=== PATIENT | male | born 1985 | race Two or more races ===

== ENCOUNTER 2017-07-21 19:42 | Inpatient (IN) | payer BC ==
[~2017-07-21] VITALS: Ht 165.1 cm; Wt 82.6 kg
[2017-07-21] MEDS ORDERED: ZANTAC150 MG ORAL (19:53)
[2017-07-21] MEDS ORDERED: Pantoprazole Inj IV ONE (20:30)
[2017-07-21 20:50] LABS: APPEARANCE,URINE SLIGHTLY CLOUDY; BILIRUBIN, URINE NEGATIVE (NEGATIVE); COLOR,URINE BROWN; GLUCOSE, URINE (UA) NEGATIVE (NEGATIVE); KETONES,URINE 1+ (NEGATIVE); LEUKOCYTE ESTERASE ,URINE 1+ (NEGATIVE); NITRITE,URINE NEGATIVE (NEGATIVE); PH,URINE 6 (4.5-8.0); PROTEIN,URINE 3+ (NEGATIVE); UROBILINOGEN,URINE 12 MG/DL (0.0-1.0)
[2017-07-21 21:06] LABS: BASOPHILS % (AUTO) 1.8 % (0.0-2.0); EOSINOPHILS % (AUTO) 0.8 % (0.0-3.0); HEMATOCRIT 46.2 % (42.0-52.0); LYMPHOCYTES % (AUTO) 16.8 % (20.0-45.0); MEAN CORPUSCULAR VOLUME 89 FL (80-99); MONOCYTES % (AUTO) 7.9 % (1.0-10.0); NEUTROPHILS % (AUTO) 72.8 % (45.0-75.0); PLATELET COUNT 180 K/UL (150-450); RED BLOOD COUNT 5.17 M/UL (4.70-6.10); RED CELL DISTRIBUTION WIDTH 11.5 % (11.6-14.8)
[2017-07-21 21:11] LABS: ANION GAP 13 mmol/L (5-15); BLOOD UREA NITROGEN 5 mg/dL (7-18); CALCIUM 9.5 MG/DL (8.5-10.1); CARBON DIOXIDE 25 MMOL/L (21-32); CHLORIDE 101 MMOL/L (98-107); CREATININE 0.9 MG/DL (0.55-1.30); POTASSIUM 2.9 MMOL/L (3.5-5.1); SODIUM 138 MMOL/L (136-145)
--- NOTE | 2017-07-21 21:16 | Emergency Room Report ---
History of Present Illness General Chief Complaint: Vomiting Source: Patient Present Illness HPI 32-year-old male presents to the emergency department complaining of nausea vomiting 2 weeks he reports that typically he has dark red blood in his vomit however today he started having bright red blood. Patient reports frequent alcohol consumption and states that in the past he had abnormal results with his liver enzymes. Patient states that he has not had blood work done for approximately 6 years. He reports 6 out of 10 in severity epigastric pain that is localized. He also reports diarrhea. Denies CP, Palpitations, LOC, AMS, dizziness, Changes in Vision, Sensation, paresthesias, or a sudden severe headache. Allergies: Coded Allergies: No Known Allergies (Unverified , 07/21/17) Patient History Past Medical History: see triage record Past Surgical History: none Pertinent Family History: none Social History: Reports: alcohol use - moderate-heavy, regularly Reviewed Nursing Documentation: PMH: Agreed; PSxH: Agreed Nursing Documentation-PMH Hx Gastrointestinal Problems: Yes Review of Systems All Other Systems: negative except mentioned in HPI Physical Exam Vital Signs Date Time Temp Pulse Resp B/P (MAP) Pulse Ox O2 Delivery O2 Flow Rate FiO2 07/21/17 19:48 98.5 106 16 142/78 95 Room Air 98.4 Sp02 EP Interpretation: reviewed, normal General Appearance: no apparent distress, alert, GCS 15 Head: normocephalic, atraumatic Eyes: bilateral eye normal inspection, bilateral eye PERRL ENT: hearing grossly normal, normal voice Neck: full range of motion Respiratory: chest non-tender, lungs clear, normal breath sounds, no wheezing, speaking full sentences Cardiovascular #1: regular rate, rhythm, tachycardia Gastrointestinal: normal bowel sounds - hyperactive BS in all 4 quadrants, non tender, soft Rectal: deferred Genitourinary: normal inspection Musculoskeletal: back normal, gait/station normal, normal range of motion, non- tender Neurologic: alert, oriented x3, responsive, motor strength/tone normal, sensory intact, speech normal, grossly normal Psychiatric: judgement/insight normal Skin: normal color, no rash, warm/dry, well hydrated Medical Decision Making PA Attestation Dr. Yap is my supervising Physician whom patient management has been discussed with. Diagnostic Impression: Primary Impression: Vomiting Qualified Codes: R11.2 - Nausea with vomiting, unspecified Additional Impressions: Upper GI bleeding H/O: upper GI bleed Hypokalemia, gastrointestinal losses Elevated liver enzymes ER Course 32-year-old male presents to the emergency department complaining of nausea vomiting 2 weeks he reports that typically he has dark red blood in his vomit however today he started having bright red blood. Patient reports frequent alcohol consumption and states that in the past he had abnormal results with his liver enzymes. Patient states that he has not had blood work done for approximately 6 years. He reports 6 out of 10 in severity epigastric pain that is localized. He also reports diarrhea. Denies CP, Palpitations, LOC, AMS, dizziness, Changes in Vision, Sensation, paresthesias, or a sudden severe headache. Ddx considered but are not limited to GE, colitis, acute appy, SBO, Cyclical Vomiting secondary to THC, * Vital signs: pt. is afebrile, H&PE are most consistent with GE most likely viral in etiology, no evidence to suggest acute abdomen on physical exam. ORDERS: -None required at this time, the dx is clinical. ED INTERVENTIONS: -1000 NS iv hydration, -Zofran 4mg DISPOSITION: at this time pt. will be admitted to Dr. Beckman for : Decreased liver function, upper GI bleed, and Hypokalemia. Dr. Beckman agreed to admit the pt. and to continue pt. care management. Labs Test 07/21/17 19:50 07/21/17 20:45 Urine Color Brown Urine Appearance Slightly cloudy Urine pH 6 (4.5-8.0) Urine Specific Hamill 1.020 (1.005-1.035) Urine Protein 3+ (NEGATIVE) Urine Glucose (UA) Negative (NEGATIVE) Urine Ketones 1+ (NEGATIVE) Urine Occult Blood Negative (NEGATIVE) Urine Nitrite Negative (NEGATIVE) Urine Bilirubin Negative (NEGATIVE) Urine Urobilinogen 12 MG/DL (0.0-1.0) Urine Leukocyte Esterase 1+ (NEGATIVE) Urine RBC 0-2 /HPF (0 - 0) Urine WBC 2-4 /HPF (0 - 0) Urine Squamous Epithelial Cells None /LPF (NONE/OCC) Urine Amorphous Sediment Moderate /LPF (NONE) Urine Bacteria Few /HPF (NONE) White Blood Count 9.0 K/UL (4.8-10.8) Red Blood Count 5.17 M/UL (4.70-6.10) Hemoglobin 17.0 G/DL (14.2-18.0) Hematocrit 46.2 % (42.0-52.0) Mean Corpuscular Volume 89 FL (80-99) Mean Corpuscular Hemoglobin 32.9 PG (27.0-31.0) Mean Corpuscular Hemoglobin Concent 36.9 G/DL (32.0-36.0) Red Cell Distribution Width 11.5 % (11.6-14.8) Platelet Count 180 K/UL (150-450) Mean Platelet Volume 7.7 FL (6.5-10.1) Neutrophils (%) (Auto) 72.8 % (45.0-75.0) Lymphocytes (%) (Auto) 16.8 % (20.0-45.0) Monocytes (%) (Auto) 7.9 % (1.0-10.0) Eosinophils (%) (Auto) 0.8 % (0.0-3.0) Basophils (%) (Auto) 1.8 % (0.0-2.0) Prothrombin Time 11.6 SEC (9.30-11.50) Prothromb Time International Ratio 1.1 (0.9-1.1) Activated Partial Thromboplast Time 26 SEC (23-33) Sodium Level 138 MMOL/L (136-145) Potassium Level 2.9 MMOL/L (3.5-5.1) Chloride Level 101 MMOL/L (98-107) Carbon Dioxide Level 25 MMOL/L (21-32) Anion Gap 13 mmol/L (5-15) Blood Urea Nitrogen 5 mg/dL (7-18) Creatinine 0.9 MG/DL (0.55-1.30) Estimat Glomerular Filtration Rate > 60 mL/min (>60) Glucose Level 118 MG/DL (74-106) Calcium Level 9.5 MG/DL (8.5-10.1) Total Bilirubin 1.9 MG/DL (0.2-1.0) Direct Bilirubin 0.8 MG/DL (0.0-0.3) Aspartate Amino Transf (AST/SGOT) 249 U/L (15-37) Alanine Aminotransferase (ALT/SGPT) 286 U/L (12-78) Alkaline Phosphatase 139 U/L (46-116) Total Protein 8.3 G/DL (6.4-8.2) Albumin 4.2 G/DL (3.4-5.0) Globulin 4.1 g/dL Albumin/Globulin Ratio 1.0 (1.0-2.7) Lipase 170 U/L (73-393) Chest X-Ray Diagnostic Results Chest X-Ray Diagnostic Results : Chest X-Ray Ordered: Yes # of Views/Limited/Complete: 1 View Indication: Chest Pain EP Interpretation: Yes PA Xray: Interpretation reviewed, by supervising MD, and agrees with findings. Interpretation: no consolidation, no effusion, no pneumothorax, no acute cardiopulmonary disease Impression: No acute disease Electronically Signed by: Leana De Guzman PA-C Last Vital Signs Date Time Temp Pulse Resp B/P (MAP) Pulse Ox O2 Delivery O2 Flow Rate FiO2 07/21/17 19:48 98.5 106 16 142/78 95 Room Air 98.4 Disposition: ADMITTED INPATIENT Condition: Serious Referrals: NOT CHOSEN IPA/,REFERRING (PCP) Leana De Guzman July 21, 2017 21:16
[2017-07-21 21:21] LABS: ALANINE AMINOTRANSFERASE 286 U/L (12-78); ALBUMIN 4.2 G/DL (3.4-5.0); ALKALINE PHOSPHATASE 139 U/L (46-116); ASPARTATE AMINO TRANSFERASE 249 U/L (15-37); BILIRUBIN,TOTAL 1.9 MG/DL (0.2-1.0)
[2017-07-21 21:22] LABS: BILIRUBIN,DIRECT 0.8 MG/DL (0.0-0.3)
[2017-07-21 22:13] VITALS: BP_SYST 118; BP_SYST 122; BP_DIAS 78; BP_DIAS 81
[2017-07-21 22:25] LABS: INR 1.1 (0.9-1.1)
[2017-07-21 23:09] VITALS: BP 137/90
[2017-07-22] VITALS (9 sets, daily range): BP systolic 120–156; BP diastolic 71–100
[2017-07-22] MEDS ORDERED: Potassium Chloride 40 MEQ in 1/2 NS 1000ml 1,000 ML IV SCH (00:18)
[2017-07-22] MEDS: NS w/KCl 20mEq 1,000 ML IV SCH ×3 (01:00→20:22)
--- NOTE | 2017-07-22 04:30 | History and Physical Report ---
DATE OF ADMISSION: 07/21/2017 HISTORY OF PRESENT ILLNESS: This is a 32-year-old male, who came in to the hospital with nausea and vomiting. He states he has been having off and on abdominal pain and emesis for approximately six months to a year. He has not lost any weight. Typically, he states he has emesis with dark red blood, however, today he started having bright red blood. The patient reports frequent and significant alcohol consumption over the weekends. He also takes ibuprofen on a regular basis. He states he has been told in the past that he has abnormal liver enzymes. The patient was seen and worked up in the emergency room and admitted to the hospital for emergent care. PAST MEDICAL HISTORY: Discussed above, unremarkable except for history of abnormal liver enzymes. Also history of heavy alcohol use and Motrin usage. PAST SURGICAL HISTORY: None. MEDICATIONS: Home medications, Motrin only. ALLERGIES: None reported. REVIEW OF SYSTEMS: The patient denies any headaches. He admits to hematemesis, but no melena. No GI bleeding. Abdomen, discussed above. No genitourinary problems. No chest pain or shortness of breath. PHYSICAL EXAMINATION: GENERAL: Reveals a young male. VITAL SIGNS: Blood pressure 130/70, heart rate 84, respirations 18, he is afebrile. HEENT: Unremarkable. LUNGS: Clear breath sounds bilaterally. ABDOMEN: Soft. EXTREMITIES: There is no edema. NEUROLOGIC: Nonfocal. LABORATORY DATA: Lab testing shows hemoglobin of 17, remaining laboratories are unremarkable. Bilirubin 1.9, AST 249, ALT 286, and alkaline phosphatase 139. Protein 8.3. Glucose 118. Potassium 2.9. IMPRESSION: 1. Hypokalemia. 2. Transaminitis. 3. Hyperglycemia. 4. Upper GI bleed. 5. Alcohol use. 6. Motrin use. DISCUSSION: Admitted to the hospital. We will check hepatitis serologies. We will consult GI balloon endoscopy. We will replace potassium. Start SCDs, Protonix. We will follow carefully. Malik Beckman M.D. DR: IGNACIO JOB#: [id number] CC:
[2017-07-22 06:10] LABS: BASOPHILS % (AUTO) 1.5 % (0.0-2.0); EOSINOPHILS % (AUTO) 1.4 % (0.0-3.0); HEMATOCRIT 41.6 % (42.0-52.0); HEMOGLOBIN 14.6 G/DL (14.2-18.0); LYMPHOCYTES % (AUTO) 29.3 % (20.0-45.0); MEAN CORPUSCULAR VOLUME 90 FL (80-99); MONOCYTES % (AUTO) 7.8 % (1.0-10.0); PLATELET COUNT 135 K/UL (150-450); RED BLOOD COUNT 4.61 M/UL (4.70-6.10); RED CELL DISTRIBUTION WIDTH 11.2 % (11.6-14.8); WHITE BLOOD COUNT 5.8 K/UL (4.8-10.8)
[2017-07-22 06:23] LABS: ANION GAP 11 mmol/L (5-15); BLOOD UREA NITROGEN 5 mg/dL (7-18); CALCIUM 8.5 MG/DL (8.5-10.1); CARBON DIOXIDE 24 MMOL/L (21-32); CHLORIDE 106 MMOL/L (98-107); CREATININE 0.9 MG/DL (0.55-1.30); POTASSIUM 3.3 MMOL/L (3.5-5.1); SODIUM 141 MMOL/L (136-145)
[2017-07-22 06:37] LABS: INR 1.1 (0.9-1.1)
--- NOTE | 2017-07-22 07:38 | Pre-Procedure Note/Attestation ---
Pre-Procedure Note/Attestation Complete Prior to Procedure Planned Procedure: not applicable Procedure Narrative: egd Indications for Procedure Pre-Operative Diagnosis: GIB Attestation I attest that I discussed the nature of the procedure; its benefits; risks and complications; and alternatives (and the risks and benefits of such alternatives ), prior to the procedure, with the patient (or the patient's legal veterans contact representative). I attest that, if there was a reasonable possibility of needing a blood transfusion, the patient (or the patient's legal veterans contact representative) was given the [facility] standardized written summary, pursuant to the Fabio Griselda Blood Safety Act ([place] Health and Safety Code # 1645, as amended). I attest that I re-evaluated the patient just prior to the surgery and that there has been no change in the patient's H&P, except as documented below: Neptali Navas MD July 22, 2017 07:38
[2017-07-22] MEDS ORDERED: NS 500ML IVPB ONE (08:30)
[2017-07-22] MEDS ORDERED: Lidocaine 1% MPF 10mg/ml 5ml ONE (08:30)
[2017-07-22] MEDS ORDERED: Propofol 200mg/20ml IV ONE (08:30)
--- NOTE | 2017-07-22 08:43 | Endoscopy Procedure Note ---
Endoscopy Procedure Note General Indication for Procedure: gib Procedures Performed: EGD Operative Findings/Diagnosis: esophagitis Specimen: yes Pt Tolerated Procedure Well: Yes Estimated Blood Loss: none Anesthesia Anesthesiologist: carlos Anesthesia: MAC Inserted Devices Implant(s) used?: No GI Core Measures 50 yrs or older w/o bx or poly: Not Applicable 10yrs. F/U not recommended: Not Applicable Neptali Navas MD July 22, 2017 08:43
[2017-07-22] MEDS ORDERED: fentaNYL 100 mcg/2 mL IV PRN (09:00)
[2017-07-22] MEDS ORDERED: Pantoprazole Inj IV SCH (09:00)
[2017-07-22] MEDS ORDERED: Sucralfate 1gm tab ORAL SCH (09:00)
[2017-07-22] MEDS ORDERED: Atropine Inj 1mg/10ml Syr IV PRN (09:00)
[2017-07-22] MEDS ORDERED: Midazolam 2mg/2ml Inj IVP PRN (09:00)
[2017-07-22] MEDS ORDERED: DiphenhydrAMINE 50mg/ml Inj IVP PRN (09:00)
[2017-07-22] MEDS: Pantoprazole Inj IV SCH ×2 (09:00→19:01)
--- NOTE | 2017-07-22 09:00 | Anethesia Preoperative Eval ---
Anesthesia Pre-op PMH/ROS General Date of Evaluation: July 22, 2017 Time of Evaluation: 08:24 Anesthesiologist: carlos ASA Score: ASA 2 Mallampati Score Class I : Soft palate, uvula, fauces, pillars visible Class II: Soft palate, uvula, fauces visible Class III: Soft palate, base of uvula visible Class IV: Only hard plate visible Mallampati Classification: Class II Surgeon: tonny Diagnosis: upper gi bleed Surgical Procedure: egd Anesthesia History: none Social History: smoking - nonsmoker, alcohol use Family History: no anesthesia problems Allergies: Coded Allergies: No Known Allergies (Unverified , 07/21/17) Medications: see eMAR Anesthesia Pre-op Phys. Exam Physician Exam Last Vital Signs Date Time Temp Pulse Resp B/P (MAP) Pulse Ox O2 Delivery O2 Flow Rate FiO2 07/22/17 04:23 97.7 76 16 125/75 100 97.7 07/21/17 23:10 Room Air Constitutional: NAD Neurologic: CN 2-12 intact Cardiovascular: RRR Respiratory: CTA Gastrointestinal: S/NT/ND Airway Exam Mallampati Score: Class II MO: full Neck: supple TMD: 2fb ROM: full Teeth: intact Anesthesia Pre-op A/P Labs Hematology Test 07/21/17 20:45 07/22/17 05:40 White Blood Count 9.0 K/UL (4.8-10.8) 5.8 K/UL (4.8-10.8) Red Blood Count 5.17 M/UL (4.70-6.10) 4.61 M/UL (4.70-6.10) L Hemoglobin 17.0 G/DL (14.2-18.0) 14.6 G/DL (14.2-18.0) Hematocrit 46.2 % (42.0-52.0) 41.6 % (42.0-52.0) L Mean Corpuscular Volume 89 FL (80-99) 90 FL (80-99) Mean Corpuscular Hemoglobin 32.9 PG (27.0-31.0) H 31.7 PG (27.0-31.0) H Mean Corpuscular Hemoglobin Concent 36.9 G/DL (32.0-36.0) H 35.1 G/DL (32.0-36.0) Red Cell Distribution Width 11.5 % (11.6-14.8) L 11.2 % (11.6-14.8) L Platelet Count 180 K/UL (150-450) 135 K/UL (150-450) L Mean Platelet Volume 7.7 FL (6.5-10.1) 8.5 FL (6.5-10.1) Neutrophils (%) (Auto) 72.8 % (45.0-75.0) 60.0 % (45.0-75.0) Lymphocytes (%) (Auto) 16.8 % (20.0-45.0) L 29.3 % (20.0-45.0) Monocytes (%) (Auto) 7.9 % (1.0-10.0) 7.8 % (1.0-10.0) Eosinophils (%) (Auto) 0.8 % (0.0-3.0) 1.4 % (0.0-3.0) Basophils (%) (Auto) 1.8 % (0.0-2.0) 1.5 % (0.0-2.0) Coagulation Test 07/21/17 20:45 07/22/17 05:40 Prothrombin Time 11.6 SEC (9.30-11.50) H 11.5 SEC (9.30-11.50) Prothromb Time International Ratio 1.1 (0.9-1.1) 1.1 (0.9-1.1) Activated Partial Thromboplast Time 26 SEC (23-33) 25 SEC (23-33) Chemistry Test 07/21/17 20:45 07/22/17 05:40 Sodium Level 138 MMOL/L (136-145) 141 MMOL/L (136-145) Potassium Level 2.9 MMOL/L (3.5-5.1) L 3.3 MMOL/L (3.5-5.1) L Chloride Level 101 MMOL/L (98-107) 106 MMOL/L (98-107) Carbon Dioxide Level 25 MMOL/L (21-32) 24 MMOL/L (21-32) Anion Gap 13 mmol/L (5-15) 11 mmol/L (5-15) Blood Urea Nitrogen 5 mg/dL (7-18) L 5 mg/dL (7-18) L Creatinine 0.9 MG/DL (0.55-1.30) 0.9 MG/DL (0.55-1.30) Estimat Glomerular Filtration Rate > 60 mL/min (>60) > 60 mL/min (>60) Glucose Level 118 MG/DL (74-106) H 100 MG/DL (74-106) Calcium Level 9.5 MG/DL (8.5-10.1) 8.5 MG/DL (8.5-10.1) Total Bilirubin 1.9 MG/DL (0.2-1.0) H Direct Bilirubin 0.8 MG/DL (0.0-0.3) H Aspartate Amino Transf (AST/SGOT) 249 U/L (15-37) H Alanine Aminotransferase (ALT/SGPT) 286 U/L (12-78) H Alkaline Phosphatase 139 U/L (46-116) H Total Protein 8.3 G/DL (6.4-8.2) H Albumin 4.2 G/DL (3.4-5.0) Globulin 4.1 g/dL Albumin/Globulin Ratio 1.0 (1.0-2.7) Lipase 170 U/L (73-393) Risk Assessment & Plan Assessment: asa2 Plan: mac Status Change Before Surgery: No Pre-Antibiotics Drug: Myriam Pedro MD July 22, 2017 09:00
--- NOTE | 2017-07-22 09:23 | Immediate Post-Op Evaluation ---
Immediate Post-Op Evalulation Immediate Post-Op Evalulation Procedure: egd Date of Evaluation: July 22, 2017 Time of Evaluation: 09:00 IV Fluids: 100ml 0.9ns Blood Products: none Estimated Blood Loss: negligible Blood Pressure Systolic: 129 Blood Pressure Diastolic: 95 Pulse Rate: 91 Respiratory Rate: 18 O2 Sat by Pulse Oximetry: 100 Temperature (Fahrenheit): 98.5 Pain Score (1-10): 0 Nausea: No Vomiting: No Complications none Patient Status: awake, reacts, patent Hydration Status: adequate Drug: Myrima Pedro MD July 22, 2017 09:23
--- NOTE | 2017-07-22 09:26 | 48 Hour Post Anesthesia Eval ---
Post Anesthesia Evaluation Procedure: egd Date of Evaluation: July 22, 2017 Time of Evaluation: 09:02 Blood Pressure Systolic: 128 0: 89 Pulse Rate: 88 Respiratory Rate: 18 Temperature (Fahrenheit): 98.5 O2 Sat by Pulse Oximetry: 100 Airway: patent Nausea: No Vomiting: No Pain Intensity: 0 Hydration Status: adequate Cardiopulmonary Status: stable Mental Status/LOC: patient returned to baseline Post-Anesthesia Complications: none Follow-up care needed: N/A Myriam Leung MD July 22, 2017 09:26
--- NOTE | 2017-07-22 11:08 | Pulmonology Progress Note ---
Assessment/Plan Assessment/Plan IMPRESSION: 1. Hypokalemia. 2. Transaminitis. 3. Hyperglycemia. 4. Upper GI bleed. 5. Alcohol use. 6. Motrin use. DISCUSSION: Advance diet DC planning Subjective Interval Events: S/p EGD Constitutional: Reports: no symptoms HEENT: Repors: no symptoms Respiratory: Reports: no symptoms Cardiovascular: Reports: no symptoms Allergies: Coded Allergies: No Known Allergies (Unverified , 07/21/17) Objective Last 24 Hour Vital Signs Date Time Temp Pulse Resp B/P (MAP) Pulse Ox O2 Delivery O2 Flow Rate FiO2 07/22/17 10:10 128/89 07/22/17 09:26 209.3 88 18 100 07/22/17 09:23 209.3 91 18 100 07/22/17 09:15 98.0 88 18 131/92 100 98.0 07/22/17 09:00 87 19 156/76 99 07/22/17 08:55 85 20 150/100 100 Nasal Cannula 3.0 07/22/17 08:50 90 18 129/95 100 Nasal Cannula 3.0 07/22/17 08:48 98.5 89 19 128/95 100 Nasal Cannula 3.0 98.5 07/22/17 04:23 97.7 76 16 125/75 100 97.7 07/21/17 23:10 Room Air 07/21/17 23:09 98.2 85 18 137/90 99 98.2 07/21/17 22:40 98.3 81 16 118/81 97 Room Air 98.3 07/21/17 22:13 98.3 81 16 118/81 97 Room Air 98.3 07/21/17 19:48 98.5 106 16 142/78 95 Room Air 98.4 Intake and Output 07/21/17 07/22/17 19:00 07:00 Intake Total 1000 ml Balance 1000 ml Intake Oral 0 ml IV Total 1000 ml # Voids 2 General Appearance: no acute distress HEENT: normocephalic Respiratory/Chest: chest wall non-tender, lungs clear Cardiovascular: normal peripheral pulses, normal rate Abdomen: normal bowel sounds Laboratory Tests 07/21/17 19:50: Urine Color Brown, Urine Appearance Slightly cloudy, Urine pH 6, Urine Specific Victor 1.020, Urine Protein 3+H, Urine Glucose (UA) Negative, Urine Ketones 1+H , Urine Occult Blood Negative, Urine Nitrite Negative, Urine Bilirubin Negative , Urine Urobilinogen 12H, Urine Leukocyte Esterase 1+H, Urine RBC 0-2H, Urine WBC 2-4, Urine Squamous Epithelial Cells None, Urine Amorphous Sediment ModerateH, Urine Bacteria Few 07/21/17 20:45: White Blood Count 9.0, Red Blood Count 5.17, Hemoglobin 17.0, Hematocrit 46.2, Mean Corpuscular Volume 89, Mean Corpuscular Hemoglobin 32.9H, Mean Corpuscular Hemoglobin Concent 36.9H, Red Cell Distribution Width 11.5L, Platelet Count 180 , Mean Platelet Volume 7.7, Neutrophils (%) (Auto) 72.8, Lymphocytes (%) (Auto) 16.8L, Monocytes (%) (Auto) 7.9, Eosinophils (%) (Auto) 0.8, Basophils (%) (Auto ) 1.8, Prothrombin Time 11.6H, Prothromb Time International Ratio 1.1, Activated Partial Thromboplast Time 26, Sodium Level 138, Potassium Level 2.9L, Chloride Level 101, Carbon Dioxide Level 25, Anion Gap 13, Blood Urea Nitrogen 5L, Creatinine 0.9, Estimat Glomerular Filtration Rate > 60, Glucose Level 118H , Calcium Level 9.5, Total Bilirubin 1.9H, Direct Bilirubin 0.8H, Aspartate Amino Transf (AST/SGOT) 249H, Alanine Aminotransferase (ALT/SGPT) 286H, Alkaline Phosphatase 139H, Total Protein 8.3H, Albumin 4.2, Globulin 4.1, Albumin/Globulin Ratio 1.0, Lipase 170 07/22/17 05:40: White Blood Count 5.8, Red Blood Count 4.61L, Hemoglobin 14.6, Hematocrit 41.6L , Mean Corpuscular Volume 90, Mean Corpuscular Hemoglobin 31.7H, Mean Corpuscular Hemoglobin Concent 35.1, Red Cell Distribution Width 11.2L, Platelet Count 135L, Mean Platelet Volume 8.5, Neutrophils (%) (Auto) 60.0, Lymphocytes (%) (Auto) 29.3, Monocytes (%) (Auto) 7.8, Eosinophils (%) (Auto) 1.4, Basophils (%) (Auto) 1.5, Prothrombin Time 11.5, Prothromb Time International Ratio 1.1, Activated Partial Thromboplast Time 25, Sodium Level 141, Potassium Level 3.3L, Chloride Level 106, Carbon Dioxide Level 24, Anion Gap 11, Blood Urea Nitrogen 5L, Creatinine 0.9, Estimat Glomerular Filtration Rate > 60, Glucose Level 100, Calcium Level 8.5, Hepatitis A IgM Antibody [ Pending], Hepatitis B Surface Antigen [Pending], Hepatitis B Core IgM Antibody [ Pending], Hepatitis C Antibody [Pending] Current Medications Medications (Trade) Dose Ordered Sig/Carlos Route PRN Reason Start Time Stop Time Status Last Admin Dose Admin Acetaminophen (Tylenol) 650 mg Q4H PRN ORAL Mild Pain (Pain Scale 1-3) 07/21/17 23:30 08/20/17 23:29 Dextrose (Dextrose 50%) 25 ml STAT PRN IV Hypoglycemia 07/21/17 23:30 08/20/17 23:29 Dextrose (Dextrose 50%) 50 ml STAT PRN IV Hypoglycemia 07/21/17 23:30 08/20/17 23:29 Ondansetron HCl (Zofran) 4 mg Q6H PRN IVP Nausea & Vomiting 07/21/17 23:30 08/20/17 23:29 Pantoprazole (Protonix) 40 mg BID IV 07/22/17 09:00 08/21/17 08:59 Pentoxifylline (TRENtal) 400 mg THREE TIMES A DAY ORAL 07/22/17 09:00 08/21/17 08:59 07/22/17 10:10 Sodium Chloride 1,000 ml @ 100 mls/hr Q10H IV 07/22/17 01:00 08/21/17 00:59 Sucralfate (Carafate) 1 gm AC+HS ORAL 07/22/17 11:30 08/21/17 11:29 Malik Beckman MD July 22, 2017 11:08
--- NOTE | 2017-07-22 11:25 | Diagnostic Imaging Report ---
Indication: Chest pain Technique: One view of the chest Comparison: none Findings: Lungs and pleural spaces are clear. Heart size is normal Impression: No acute process
[2017-07-22] MEDS: Sucralfate 1gm tab ORAL SCH ×3 (11:51→20:22)
--- NOTE | 2017-07-22 13:55 | Diagnostic Imaging Report ---
Indication: Abnormal liver function tests Technique: Wilburn-scale and duplex images of the upper abdomen were obtained Comparison: none Findings: Gallbladder is unremarkable, without stones, wall thickening, nor pericholecystic fluid. Sonographic Hernandez's sign is negative. Common bile duct measures 10 mm in diameter. No intrahepatic biliary ductal dilatation. Liver demonstrates diffusely increased echogenicity, consistent with diffuse hepatocellular disease, most likely fatty change. It is equivocally slightly enlarged Portal vein and hepatic veins are patent. Pancreas is obscured by bowel gas. Spleen is enlarged, measuring 16 cm long axis dimension Left kidney measures 13.2 cm in length. Right kidney measures 12.2 cm length. Both kidneys demonstrate normal echogenicity. There is no hydronephrosis. The left kidney demonstrates a small cyst . Abdominal aorta is partially obscured by bowel gas, visualized portions are non-aneurysmal . Impression: Mild unremarkable gallbladder Mild extrahepatic biliary ductal dilatation. Downstream obstruction not excludable. Correlate with liver function tests, consider MRCP for further evaluation if clinically indicated Liver demonstrates diffusely increased echogenicity, consistent with diffuse hepatocellular disease, most likely fatty change. Equivocal mild hepatomegaly Splenomegaly Note nonvisualization of the pancreas and portions of the abdominal aorta Incidental finding small left renal cyst
[2017-07-23 04:00] VITALS: BP 125/87
[2017-07-23 04:39] LABS: BASOPHILS % (AUTO) 1.4 % (0.0-2.0); HEMATOCRIT 40.2 % (42.0-52.0); HEMOGLOBIN 14.4 G/DL (14.2-18.0); LYMPHOCYTES % (AUTO) 26.6 % (20.0-45.0); MEAN CORPUSCULAR VOLUME 90 FL (80-99); MONOCYTES % (AUTO) 8.1 % (1.0-10.0); NEUTROPHILS % (AUTO) 62.8 % (45.0-75.0); PLATELET COUNT 121 K/UL (150-450); RED BLOOD COUNT 4.48 M/UL (4.70-6.10); RED CELL DISTRIBUTION WIDTH 11.1 % (11.6-14.8); WHITE BLOOD COUNT 5.4 K/UL (4.8-10.8)
[2017-07-23 05:03] LABS: ALANINE AMINOTRANSFERASE 210 U/L (12-78); ALBUMIN 3.2 G/DL (3.4-5.0); ALKALINE PHOSPHATASE 98 U/L (46-116); ANION GAP 8 mmol/L (5-15); ASPARTATE AMINO TRANSFERASE 245 U/L (15-37); BILIRUBIN,TOTAL 1.9 MG/DL (0.2-1.0); BLOOD UREA NITROGEN 4 mg/dL (7-18); CALCIUM 8.5 MG/DL (8.5-10.1); CARBON DIOXIDE 26 MMOL/L (21-32); CHLORIDE 106 MMOL/L (98-107); CREATININE 0.8 MG/DL (0.55-1.30); POTASSIUM 3.7 MMOL/L (3.5-5.1); SODIUM 140 MMOL/L (136-145)
[2017-07-23 05:54] LABS: BILIRUBIN,DIRECT 0.7 MG/DL (0.0-0.3)
[2017-07-23] MEDS: Sucralfate 1gm tab ORAL SCH (06:20)
[2017-07-23] MEDS: NS w/KCl 20mEq 1,000 ML IV SCH (06:21)
[2017-07-23 08:00] VITALS: BP 142/88
[2017-07-23] MEDS ORDERED: PROTONIX40 MG ORAL (08:07)
--- NOTE | 2017-07-23 08:07 | Pulmonology Progress Note ---
Assessment/Plan Assessment/Plan IMPRESSION: 1. Hypokalemia. 2. Transaminitis. 3. Hyperglycemia. 4. Upper GI bleed. Gastritis 5. Alcohol use. 6. Motrin use. DISCUSSION: Advance diet DC planning Subjective Interval Events: Better; on regulat diet; Hgb 14 Constitutional: Reports: no symptoms HEENT: Repors: no symptoms Respiratory: Reports: no symptoms Allergies: Coded Allergies: No Known Allergies (Unverified , 07/21/17) Objective Last 24 Hour Vital Signs Date Time Temp Pulse Resp B/P (MAP) Pulse Ox O2 Delivery O2 Flow Rate FiO2 07/23/17 04:00 97.0 87 17 125/87 98 Room Air 97.0 07/22/17 20:14 98.0 90 17 125/79 97 98.0 07/22/17 19:01 123/78 07/22/17 16:00 98.1 78 17 123/78 98 98.1 07/22/17 13:23 120/71 07/22/17 12:00 Room Air 07/22/17 12:00 98.0 81 17 120/71 99 98.0 07/22/17 10:10 128/89 07/22/17 09:26 209.3 88 18 100 07/22/17 09:23 209.3 91 18 100 07/22/17 09:15 98.0 88 18 131/92 100 98.0 07/22/17 09:00 87 19 156/76 99 07/22/17 08:55 85 20 150/100 100 Nasal Cannula 3.0 07/22/17 08:50 90 18 129/95 100 Nasal Cannula 3.0 07/22/17 08:48 98.5 89 19 128/95 100 Nasal Cannula 3.0 98.5 Intake and Output 07/22/17 07/23/17 19:00 07:00 Intake Total 1300 ml 1200 ml Balance 1300 ml 1200 ml Intake Oral 500 ml 100 ml IV Total 800 ml 1100 ml # Voids 2 3 General Appearance: no acute distress HEENT: normocephalic Respiratory/Chest: chest wall non-tender, lungs clear Cardiovascular: normal peripheral pulses, normal rate Abdomen: normal bowel sounds Laboratory Tests 07/23/17 04:00: White Blood Count 5.4, Red Blood Count 4.48L, Hemoglobin 14.4, Hematocrit 40.2L , Mean Corpuscular Volume 90, Mean Corpuscular Hemoglobin 32.1H, Mean Corpuscular Hemoglobin Concent 35.8, Red Cell Distribution Width 11.1L, Platelet Count 121L, Mean Platelet Volume 8.9, Neutrophils (%) (Auto) 62.8, Lymphocytes (%) (Auto) 26.6, Monocytes (%) (Auto) 8.1, Eosinophils (%) (Auto) 1.0, Basophils (%) (Auto) 1.4, Sodium Level 140, Potassium Level 3.7, Chloride Level 106, Carbon Dioxide Level 26, Anion Gap 8, Blood Urea Nitrogen 4L, Creatinine 0.8, Estimat Glomerular Filtration Rate > 60, Glucose Level 96, Calcium Level 8.5, Total Bilirubin 1.9H, Direct Bilirubin 0.7H, Aspartate Amino Transf (AST/SGOT) 245H, Alanine Aminotransferase (ALT/SGPT) 210H, Alkaline Phosphatase 98, Total Protein 6.3L, Albumin 3.2L, Globulin 3.1, Albumin/ Globulin Ratio 1.0 Current Medications Medications (Trade) Dose Ordered Sig/Carlos Route PRN Reason Start Time Stop Time Status Last Admin Dose Admin Acetaminophen (Tylenol) 650 mg Q4H PRN ORAL Mild Pain (Pain Scale 1-3) 07/21/17 23:30 08/20/17 23:29 Dextrose (Dextrose 50%) 25 ml STAT PRN IV Hypoglycemia 07/21/17 23:30 08/20/17 23:29 Dextrose (Dextrose 50%) 50 ml STAT PRN IV Hypoglycemia 07/21/17 23:30 08/20/17 23:29 Ondansetron HCl (Zofran) 4 mg Q6H PRN IVP Nausea & Vomiting 07/21/17 23:30 08/20/17 23:29 07/22/17 20:51 Pantoprazole (Protonix) 40 mg BID IV 07/22/17 09:00 08/21/17 08:59 07/22/17 19:01 Pentoxifylline (TRENtal) 400 mg THREE TIMES A DAY ORAL 07/22/17 09:00 08/21/17 08:59 07/22/17 19:01 Sodium Chloride 1,000 ml @ 100 mls/hr Q10H IV 07/22/17 01:00 08/21/17 00:59 07/23/17 06:21 Sucralfate (Carafate) 1 gm AC+HS ORAL 07/22/17 11:30 08/21/17 11:29 07/23/17 06:20 Malik Beckman MD July 23, 2017 08:07
--- NOTE | 2017-07-23 08:46 | Procedure Note ---
DATE OF PROCEDURE: 07/22/2017 SURGEON: Neptali Navas M.D. ANESTHESIOLOGIST: Dr. Larry. PROCEDURE: Upper endoscopy with biopsy. ANESTHESIA: Per Dr. Larry. INSTRUMENT: Olympus adult flexible upper endoscope. INDICATION: Coffee-ground emesis. REASON FOR PROCEDURE: The procedure, risks, benefits, and possible consequences, including hemorrhage, aspiration, perforation and infection, and alternative treatments, were explained to the patient/legal guardian by Dr. Neptali Navas and the patient/legal guardian understood and accepted these risks. PROCEDURE: After informed consent was obtained, the patient was adequately sedated, Olympus upper endoscope was advanced from the mouth into the second portion of duodenum and retroflexion was performed in the stomach. The patient's severe distal esophagitis, most probably from retching and vomiting. No active bleeding at this time. In the stomach, there was diffuse gastritis. Random biopsy from antrum was obtained to rule out H. pylori infection. The rest of the examination was within normal limits. The patient had difficulty with sedation after coughing and throughout this procedure. At this time, the scope was retrieved and procedure was terminated. SUMMARY OF FINDINGS: 1. Distal esophagitis. 2. Gastritis status post biopsy. RECOMMENDATIONS: 1. Increase Protonix to twice a day. 2. Add Carafate. 3. Change diet to the gastrointestinal soft diet. 4. Follow up biopsies and treat accordingly. 5. The patient was advised to stop drinking. 6. We also added pentoxpylline 3 times a day for alcoholic hepatitis. Neptali Navas M.D. DR: TC JOB#: [id number] CC: JACOBO
[2017-07-23] MEDS: Pantoprazole Inj IV SCH (09:09)
[2017-07-23 09:10] VITALS: BP 142/88
--- NOTE | 2017-07-23 11:32 | GI Progress Note ---
Assessment/Plan Problems: (1) Alcoholic hepatitis ICD Codes: K70.10 - Alcoholic hepatitis without ascites SNOMED: 541570460 (2) Esophagitis ICD Codes: K20.9 - Esophagitis, unspecified SNOMED: 97246525 Status: stable Status Narrative Discussed with Dr. Navas. Assessment/Plan SUMMARY OF FINDINGS: 1. Distal esophagitis. 2. Gastritis status post biopsy. RECOMMENDATIONS: 1. Increase Protonix to twice a day. 2. Add Carafate. 3. Change diet to the gastrointestinal soft diet. 4. Follow up biopsies and treat accordingly. 5. The patient was advised to stop drinking. 6. We also added pentoxpylline 3 times a day for alcoholic hepatitis. okay for DC per GI standpoint Subjective Gastrointestinal/Abdominal: Reports: no symptoms Objective Last 24 Hour Vital Signs Date Time Temp Pulse Resp B/P (MAP) Pulse Ox O2 Delivery O2 Flow Rate FiO2 07/23/17 09:10 142/88 07/23/17 08:00 98.4 86 20 142/88 98 Room Air 98.4 07/23/17 04:00 97.0 87 17 125/87 98 Room Air 97.0 07/22/17 20:14 98.0 90 17 125/79 97 98.0 07/22/17 19:01 123/78 07/22/17 16:00 98.1 78 17 123/78 98 98.1 07/22/17 13:23 120/71 07/22/17 12:00 Room Air 07/22/17 12:00 98.0 81 17 120/71 99 98.0 Intake and Output 07/22/17 07/23/17 19:00 07:00 Intake Total 1300 ml 1200 ml Balance 1300 ml 1200 ml Intake Oral 500 ml 100 ml IV Total 800 ml 1100 ml # Voids 2 3 Laboratory Tests Test 07/23/17 04:00 White Blood Count 5.4 K/UL (4.8-10.8) Red Blood Count 4.48 M/UL (4.70-6.10) L Hemoglobin 14.4 G/DL (14.2-18.0) Hematocrit 40.2 % (42.0-52.0) L Mean Corpuscular Volume 90 FL (80-99) Mean Corpuscular Hemoglobin 32.1 PG (27.0-31.0) H Mean Corpuscular Hemoglobin Concent 35.8 G/DL (32.0-36.0) Red Cell Distribution Width 11.1 % (11.6-14.8) L Platelet Count 121 K/UL (150-450) L Mean Platelet Volume 8.9 FL (6.5-10.1) Neutrophils (%) (Auto) 62.8 % (45.0-75.0) Lymphocytes (%) (Auto) 26.6 % (20.0-45.0) Monocytes (%) (Auto) 8.1 % (1.0-10.0) Eosinophils (%) (Auto) 1.0 % (0.0-3.0) Basophils (%) (Auto) 1.4 % (0.0-2.0) Sodium Level 140 MMOL/L (136-145) Potassium Level 3.7 MMOL/L (3.5-5.1) Chloride Level 106 MMOL/L (98-107) Carbon Dioxide Level 26 MMOL/L (21-32) Anion Gap 8 mmol/L (5-15) Blood Urea Nitrogen 4 mg/dL (7-18) L Creatinine 0.8 MG/DL (0.55-1.30) Estimat Glomerular Filtration Rate > 60 mL/min (>60) Glucose Level 96 MG/DL (74-106) Calcium Level 8.5 MG/DL (8.5-10.1) Total Bilirubin 1.9 MG/DL (0.2-1.0) H Direct Bilirubin 0.7 MG/DL (0.0-0.3) H Aspartate Amino Transf (AST/SGOT) 245 U/L (15-37) H Alanine Aminotransferase (ALT/SGPT) 210 U/L (12-78) H Alkaline Phosphatase 98 U/L (46-116) Total Protein 6.3 G/DL (6.4-8.2) L Albumin 3.2 G/DL (3.4-5.0) L Globulin 3.1 g/dL Albumin/Globulin Ratio 1.0 (1.0-2.7) Height (Feet): 5 Height (Inches): 5.00 Weight (Pounds): 182 General Appearance: WD/WN, no apparent distress, alert Cardiovascular: normal rate Respiratory/Chest: normal breath sounds, no respiratory distress Abdominal Exam: normal bowel sounds, non tender, soft Extremities: normal range of motion, non-tender Meredith Anderson NP July 23, 2017 11:32
--- NOTE | 2017-07-24 13:15 | Discharge Summary ---
Discharge Summary Discharge Summary Discharge Summary DATE OF ADMISSION: 07/21/2017 DATE OF DISCHARGE: 07/23/2017 CONSULTANTS: Dr. Neptali Navas [facility] COURSE: Patient is a 32-year-old male, who came to the hospital with nausea and vomiting. He was complaining of abdominal pain and emesis for 6 months to a year. There was no weight loss. He typically has emesis with dark red blood, however he started to have bright red blood vomiting. He reports significant alcohol consumption over the weekend. He also takes ibuprofen on a regular basis. He was told in the past he had abnormal liver enzymes. He was evaluated at ED, blood work showed WBC 9, hemoglobin 17. Bilirubin was 1.9, AST 249, AST 286 and alkaline phosphatase 159. He had hypokalemia potassium of 2.9. Lipase was normal. Chest x-ray showed no acute disease, no consolidation, no effusion, no pneumothorax. He was admitted for evaluation of a transaminitis and hypo kalemia. He was seen by GI. Abdominal ultrasound showed unremarkable gallbladder. Liver had increased echogenicity consistent with hepatocellular disease. Hepatitis panel was negative. On 07/22/2017 he underwent EGD. Findings showed distal esophagitis and gastritis. Protonix was increased to twice a day. He was also given Carafate. He was strongly counseled to stop alcohol intake. He was also given pentoxifylline 3 times a day for alcoholic hepatitis. He was eventually cleared for discharge home. FINAL DIAGNOSES: Elevated liver transaminases/transaminitis Hypokalemia Hyperglycemia Upper GI bleed Gastritis Distal esophagitis Alcohol use NSAID use Status post EGD 07/22/2017 Alcoholic hepatitis DISPOSITION: Patient was discharged home. DISCHARGE MEDICATIONS: Refer to Discharge Medication List. DISCHARGE INSTRUCTIONS: Follow up with PCP in a week. I have been assigned to dictate discharge summary on this account, and I was not involved in the patient's management. Cat Jackson NP July 24, 2017 13:15
== END 2017-07-23 11:19 | disposition home or self-care (01) | DRG 641 ==
LOC: EMR 20:57 → 3E 21:01 → EDBEDREQ 21:42
PROC: 0DB78ZX Excision of Stomach, Pylorus, Via Natural or Artificial Opening Endoscopic, Diagnostic (ICD-10-PCS; principal; 2017-07-22 08:34)
DX: E87.6 Hypokalemia (principal); K92.2 Gastrointestinal hemorrhage, unspecified; R74.0 Nonspecific elevation of levels of transaminase and lactic acid dehydrogenase [LDH]; R73.9 Hyperglycemia, unspecified; K29.70 Gastritis, unspecified, without bleeding; K20.9 Esophagitis, unspecified; K70.10 Alcoholic hepatitis without ascites; F10.10 Alcohol abuse, uncomplicated
CPT/HCPCS: 36415; 71045; 76700; 80048; 80053; 81003; 82248; 83690; 85025; 85610; 85730; 86705; 86709; 86803; 86850; 86900; 86901; 87340; 94003; 94150; 99285; J2405; J8499

== ENCOUNTER 2017-12-10 11:28 | Emergency (ER) | payer BC ==
[~2017-12-10] VITALS: Ht 177.8 cm; Wt 83.0 kg
[~2017-12-10 11:28] MED LIST: PROTONIX40 MG ORAL; ZANTAC150 MG ORAL
[2017-12-10 11:50] VITALS: BP 133/90
[2017-12-10] MEDS ORDERED: Ketorolac 30mg Inj IM ONE (12:00)
[2017-12-10] MEDS ORDERED: Methocarbamol 750mg tab ORAL ONE (12:00)
[2017-12-10] MEDS ORDERED: IBUPROFEN600 MG ORAL (12:27)
[2017-12-10] MEDS ORDERED: ROBAXIN-750750 MG PO (12:27)
[2017-12-10 13:15] VITALS: BP 133/90
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
== END 2017-12-10 13:10 | disposition home or self-care (01) ==
LOC: EMR 12:45
DX: S16.1XXA Strain of muscle, fascia and tendon at neck level, initial encounter (principal); S46.811A Strain of other muscles, fascia and tendons at shoulder and upper arm level, right arm, initial encounter; W05.2XXA Fall from non-moving motorized mobility scooter, initial encounter; Y93.9 Activity, unspecified; Y92.9 Unspecified place or not applicable
CPT/HCPCS: 96372; 99283; J1885

== ENCOUNTER 2018-05-12 18:45 | Emergency (ER) | payer BC ==
[~2018-05-12] VITALS: Ht 177.8 cm; Wt 104.3 kg
[~2018-05-12 18:45] MED LIST changes: +IBUPROFEN600 MG ORAL; +ROBAXIN-750750 MG PO
--- NOTE | 2018-05-12 18:52 | NUR ---
ED Nurse Note: PT BROUGHT IN TO ER TODAY FROM HOME BY ROOM MATE. PT NOT RESPONDING TO QUESTIONS BUT AWAKE AND RESPONSIVE TO VOICE. PER ROOM MATE, PT WAS FOUND ON THE FLOOR WITH A BOTTLE OF ALCOHOL NEXT TO HIM. PT SLIGHTLY TACHYCARDIC - HR: 104 BUT OTHER VSS.
[2018-05-12 18:55] VITALS: BP 129/83
[2018-05-12] MEDS ORDERED: NKM (18:58)
--- NOTE | 2018-05-12 19:02 | Emergency Room Report ---
History of Present Illness General Chief Complaint: Alcohol Intoxication Source: Patient, Family Member (Fransisco Sherman) Present Illness HPI 33-year-old male patient presents the ER brought in by family members complaining of EtOH intoxication. Informed by family member that they arrived home and found the patient face up on the floor and had "bubbles coming out of his mouth". Noted small abrasion on top lip. Do not know if he fell and hit his head or how he lost consciousness. Reports history of similar problems in the past. Denies taking medications currently. Patient is acutely intoxicated in the ER with smells of alcohol, alert to name and oriented however is not good historian. (Fransisco Sherman) Allergies: Coded Allergies: No Known Allergies (Unverified , 07/21/17) Patient History Past Medical History: see triage record Reviewed Nursing Documentation: PMH: Agreed; PSxH: Agreed (Fransisco Sherman) Nursing Documentation-PMH Past Medical History: No History, Except For Hx Cardiac Problems: No Hx Cancer: No Hx Gastrointestinal Problems: Yes History Of Psychiatric Problem: Yes - etoh abuse Hx Neurological Problems: No (Fransisco Sherman) Review of Systems All Other Systems: negative except mentioned in HPI (Fransisco Sherman) Physical Exam Vital Signs Date Time Temp Pulse Resp B/P (MAP) Pulse Ox O2 Delivery O2 Flow Rate FiO2 05/12/18 18:47 98.4 104 20 129/83 95 Room Air Sp02 EP Interpretation: reviewed, normal General Appearance: well appearing, no apparent distress, alert, GCS 15, non- toxic, other - Intoxicated Head: normocephalic, atraumatic, other - Negative pennington sign, negative raccoon eyes, no skull depression, negative hemotympanum bilaterally ENT: hearing grossly normal, normal pharynx, no angioedema, normal voice, TMs + canals normal, uvula midline, moist mucus membranes Neck: full range of motion, no bony tend Respiratory: lungs clear, normal breath sounds, no rhonchi, no respiratory distress, no accessory muscle use, no wheezing, speaking full sentences Cardiovascular #1: regular rate, rhythm, no edema Gastrointestinal: non tender, soft, no mass, non-distended, no guarding, no rebound Genitourinary: no CVA tenderness Musculoskeletal: back normal, digits/nails normal, gait/station normal, normal range of motion, non-tender Neurologic: alert, oriented x3, responsive, motor strength/tone normal, sensory intact Psychiatric: mood/affect normal Skin: no rash, other - Small abrasion noted on right medial lateral portion of upper lip, no laceration, no loose teeth (Fransisco Sherman) Medical Decision Making PA Attestation Dr. Yap is my supervising Physician whom patient management has been discussed with. (Fransisco Sherman) Diagnostic Impression: Primary Impression: Acute alcoholic intoxication Additional Impressions: Head injury Hypokalemia ER Course Pt. presents to the ED for alcohol intoxication Ddx considered but are not limited to drug use, alcohol use, psychosis. Vital signs: are WNL, pt. is afebrile ER COURSE: patient resting comfortably in bed, in no acute distress, nontoxic appearing. Physical exam benign, lungs clear to auscultation, no trauma or lacerations, no abdominal TTP. CBC unremarkable CMP shows mild hypokalemia, will provide with oral potassium, mild LFT elevation noted, likely due to ETOH use. Serum alcohol level elevated. Will allow patient to sleep of alcohol intoxication. UDS negative, acetaminophen and salicylate levels not elevated. CT Head and facial bones negative for fracture or acute disease, mild sinusitis noted, advised on use of Claritin. Advised on avoiding excessive alcohol intake. Will allow patient to sleep off EtOH intoxication Discharge when sober. Patient signed out to Dr. Anderson. - Please note that this Emergency Department Report was dictated using [employer] physician technology software, occasionally this can lead to erroneous entry secondary to interpretation by the dictation equipment. Labs Test 05/12/18 19:06 05/12/18 20:00 White Blood Count 10.3 K/UL (4.8-10.8) Red Blood Count 6.03 M/UL (4.70-6.10) Hemoglobin 17.6 G/DL (14.2-18.0) Hematocrit 52.6 % (42.0-52.0) Mean Corpuscular Volume 87 FL (80-99) Mean Corpuscular Hemoglobin 29.3 PG (27.0-31.0) Mean Corpuscular Hemoglobin Concent 33.5 G/DL (32.0-36.0) Red Cell Distribution Width 12.2 % (11.6-14.8) Platelet Count 247 K/UL (150-450) Mean Platelet Volume 6.8 FL (6.5-10.1) Neutrophils (%) (Auto) 52.6 % (45.0-75.0) Lymphocytes (%) (Auto) 42.5 % (20.0-45.0) Monocytes (%) (Auto) 3.0 % (1.0-10.0) Eosinophils (%) (Auto) 0.3 % (0.0-3.0) Basophils (%) (Auto) 1.6 % (0.0-2.0) Sodium Level 146 MMOL/L (136-145) Potassium Level 3.3 MMOL/L (3.5-5.1) Chloride Level 105 MMOL/L (98-107) Carbon Dioxide Level 25 MMOL/L (21-32) Anion Gap 16 mmol/L (5-15) Blood Urea Nitrogen 12 mg/dL (7-18) Creatinine 0.9 MG/DL (0.55-1.30) Estimat Glomerular Filtration Rate > 60 mL/min (>60) Glucose Level 143 MG/DL (74-106) Calcium Level 8.8 MG/DL (8.5-10.1) Total Bilirubin 0.9 MG/DL (0.2-1.0) Aspartate Amino Transf (AST/SGOT) 48 U/L (15-37) Alanine Aminotransferase (ALT/SGPT) 88 U/L (12-78) Alkaline Phosphatase 135 U/L (46-116) Total Protein 8.3 G/DL (6.4-8.2) Albumin 4.5 G/DL (3.4-5.0) Globulin 3.8 g/dL Albumin/Globulin Ratio 1.2 (1.0-2.7) Salicylates Level < 0.2 ug/mL (2.8-20) Acetaminophen Level < 2 MCG/ML (10-30) Serum Alcohol 453 mg/dL Urine Opiates Screen Negative (NEGATIVE) Urine Barbiturates Screen Negative (NEGATIVE) Phencyclidine (PCP) Screen Negative (NEGATIVE) Urine Amphetamines Screen Negative (NEGATIVE) Urine Benzodiazepines Screen Negative (NEGATIVE) Urine Cocaine Screen Negative (NEGATIVE) Urine Marijuana (THC) Screen Negative (NEGATIVE) (Fransisco Sherman) ER Course Patient signout to me. He presents with alcohol intoxication. He slept the night and is now awake. Walking without any difficulty. No slurred speech. His mom is here to pick him up. We'll discharge home. (Dharmesh Anderson MD) CT/MRI/US Diagnostic Results CT/MRI/US Diagnostic Results #1: Imaging Test Ordered: CT head Impression No acute disease CT/MRI/US Diagnostic Results #2: Imaging Test Ordered: CT facial bones Impression Sinusitis otherwise negative (Fransisco Sherman) Last Vital Signs Date Time Temp Pulse Resp B/P (MAP) Pulse Ox O2 Delivery O2 Flow Rate FiO2 05/12/18 18:55 98.4 104 20 129/83 95 Room Air (Fransisco Sherman) Disposition: HOME, SELF-CARE Condition: Stable Patient Instructions: Alcohol Intoxication, [id number], Head Injury, Adult, [id number], Hypokalemia Additional Instructions: Follow up with primary care physician in 1 - 2 days. If you experience loss of concsiousness, vision loss or intractable vomiting, return to ED immediately. Avoid screen time. Drink plenty of fluids. Avoid alcohol/drug use, rest. Do not drink alcohol in excess. Take medications as directed. Patient questions asked and answered. ER precautions given, patient instructed to return to ER immediately for any new or worsening of symptoms. Fransisco Sherman May 12, 2018 19:02 Dharmesh Anderson MD May 13, 2018 00:37
--- NOTE | 2018-05-12 19:08 | NUR ---
ED Nurse Note: PT TO CT VIA NATALIE.
--- NOTE | 2018-05-12 19:09 | NUR ---
ED Nurse Note: REPORT GIVEN TO SARITA COHEN.
[2018-05-12 19:25] LABS: BASOPHILS % (AUTO) 1.6 % (0.0-2.0); EOSINOPHILS % (AUTO) 0.3 % (0.0-3.0); HEMATOCRIT 52.6 % (42.0-52.0); HEMOGLOBIN 17.6 G/DL (14.2-18.0); LYMPHOCYTES % (AUTO) 42.5 % (20.0-45.0); MEAN CORPUSCULAR VOLUME 87 FL (80-99); NEUTROPHILS % (AUTO) 52.6 % (45.0-75.0); PLATELET COUNT 247 K/UL (150-450); RED BLOOD COUNT 6.03 M/UL (4.70-6.10); RED CELL DISTRIBUTION WIDTH 12.2 % (11.6-14.8); WHITE BLOOD COUNT 10.3 K/UL (4.8-10.8)
--- NOTE | 2018-05-12 19:30 | NUR ---
ED Nurse Note: report received from SARITA Rosa and assumed care, pt sleeping, iv intact and patent, resp even and unlabored on RA, brother in law at bedside, will cont monitor.
[2018-05-12 19:37] LABS: ANION GAP 16 mmol/L (5-15); BLOOD UREA NITROGEN 12 mg/dL (7-18); CALCIUM 8.8 MG/DL (8.5-10.1); CARBON DIOXIDE 25 MMOL/L (21-32); CHLORIDE 105 MMOL/L (98-107); CREATININE 0.9 MG/DL (0.55-1.30); POTASSIUM 3.3 MMOL/L (3.5-5.1); SODIUM 146 MMOL/L (136-145)
[2018-05-12 19:42] LABS: ALANINE AMINOTRANSFERASE 88 U/L (12-78); ALBUMIN 4.5 G/DL (3.4-5.0); ALBUMIN/GLOBULIN RATIO 1.2 (1.0-2.7); ALKALINE PHOSPHATASE 135 U/L (46-116); ASPARTATE AMINO TRANSFERASE 48 U/L (15-37); BILIRUBIN,TOTAL 0.9 MG/DL (0.2-1.0)
--- NOTE | 2018-05-12 20:05 | NUR ---
ED Nurse Note: pt cleaned and changed.
[2018-05-12 20:55] VITALS: BP 121/86
--- NOTE | 2018-05-12 21:00 | NUR ---
ED Nurse Note: pt AA&ox4, gcs=15, more awake and alert, mother at bedside, ERMD notified regarding pt's condition PER ERMD order will continue to observe pt, -n/v/d, pt reports hungry and thirsty, verified with ermd and given sandwich and juice. tolerates po fluid/food well.
[2018-05-12 22:55] VITALS: BP 126/84
--- NOTE | 2018-05-13 00:30 | NUR ---
ED Nurse Note: pt cleared to be d/c per ERMD, pt left without paperwork, pt discharge instruction and after care instruction provided prior to pt's departure, pt advised to follow up with pcp or return to ed if sx worsen or new sx develop, pt and the parent verbalized understanding and agrees with plan, pt left w/ all belongings, vss, airway intact, resp even and unlabored on RA, -n/v/d, ambulatory w/ steady gait.
--- NOTE | 2018-05-13 00:30 | NUR ---
ED Nurse Note: iv d/c and wristband removed. dressing intact.
[2018-05-13 00:57] VITALS: BP 127/78
--- NOTE | 2018-05-13 09:01 | Diagnostic Imaging Report ---
Indications: Trauma, pain Technique: Spiral images obtained through the facial bones. No IV contrast utilized. Multiplanar reconstructions were generated.Total dose length product 2426.06 mGycm. CTDIvol(s) 70.38,28.19,28.19 mGy. Dose reduction achieved using automated exposure control Comparison: none Findings: No acute fractures. No dislocations. No worrisome sinus air-fluid levels. There are bilateral maxillary sinus polyps versus mucous retention cyst. There is minimal mucosal disease within the ethmoid sinuses. The optic globes and retroseptal orbits are intact. The mastoids are clear. The dentition is intact. The nasal septum is midline. The visualized intracranial structures are unremarkable. Impression: No acute bony trauma Sinus disease This agrees with the preliminary interpretation provided overnight by Dr. Tracy The CT scanner at [facility] is accredited by the [employer] and the scans are performed using protocols designed to limit radiation exposure to as low as reasonably achievable to attain images of sufficient resolution adequate for diagnostic evaluation.
--- NOTE | 2018-05-13 09:08 | Diagnostic Imaging Report ---
Indications: Altered level consciousness Technique: Spiral acquisitions obtained through the brain. Angled axial and coronal 5 x 5 mm slices were reconstructed. Total dose length product 2426.06 mGycm. CTDI vol(s) 70.38,28.19,28.19 mGy. Dose reduction achieved using automated exposure control Comparison: None Findings: There is motion artifact, despite repeat acquisitions. No gross acute intracranial hemorrhage nor edema, mass effect, nor midline shift. Normal dao-white differentiation. The sinuses are grossly clear. The orbits are grossly unremarkable. No definite calvarial fracture. Impression: Limited exam, due to motion artifact. No gross acute intracranial bleed or mass effect This agrees with the preliminary interpretation provided overnight by Dr. Tracy The CT scanner at [facility] is accredited by the [employer] and the scans are performed using protocols designed to limit radiation exposure to as low as reasonably achievable to attain images of sufficient resolution adequate for diagnostic evaluation.
== END 2018-05-13 00:30 | disposition home or self-care (01) ==
LOC: EMR 19:23
DX: F10.129 Alcohol abuse with intoxication, unspecified (principal); S09.90XA Unspecified injury of head, initial encounter; S00.511A Abrasion of lip, initial encounter; W19.XXXA Unspecified fall, initial encounter; Y92.009 Unspecified place in unspecified non-institutional (private) residence as the place of occurrence of the external cause; E87.6 Hypokalemia
CPT/HCPCS: 36415; 70450; 70486; 80053; 80307; 85025; 96360; 99284; G0480; 80329; J8499

== ENCOUNTER 2018-09-07 19:04 | Emergency (ER) | payer BC ==
[~2018-09-07] VITALS: Ht 170.2 cm; Wt 68.0 kg
[~2018-09-07 19:04] MED LIST changes: +NKM
[2018-09-07 19:10] VITALS: BP 121/76
[2018-09-07 19:52] LABS: BASOPHILS % (AUTO) 0.6 % (0.0-2.0); EOSINOPHILS % (AUTO) 2.2 % (0.0-3.0); HEMATOCRIT 48.3 % (42.0-52.0); HEMOGLOBIN 16.7 G/DL (14.2-18.0); LYMPHOCYTES % (AUTO) 52.3 % (20.0-45.0); MEAN CORPUSCULAR VOLUME 90 FL (80-99); MONOCYTES % (AUTO) 5.1 % (1.0-10.0); NEUTROPHILS % (AUTO) 39.8 % (45.0-75.0); PLATELET COUNT 180 K/UL (150-450); RED BLOOD COUNT 5.38 M/UL (4.70-6.10); RED CELL DISTRIBUTION WIDTH 11.4 % (11.6-14.8); WHITE BLOOD COUNT 6.9 K/UL (4.8-10.8)
[2018-09-07 19:56] LABS: ANION GAP 12 mmol/L (5-15); BLOOD UREA NITROGEN 10 mg/dL (7-18); CALCIUM 8.5 MG/DL (8.5-10.1); CARBON DIOXIDE 28 MMOL/L (21-32); CHLORIDE 110 MMOL/L (98-107); CREATININE 0.8 MG/DL (0.55-1.30); POTASSIUM 3.6 MMOL/L (3.5-5.1); SODIUM 150 MMOL/L (136-145)
[2018-09-07 20:02] LABS: ALANINE AMINOTRANSFERASE 86 U/L (12-78); ALBUMIN 4.3 G/DL (3.4-5.0); ALBUMIN/GLOBULIN RATIO 1.2 (1.0-2.7); ALKALINE PHOSPHATASE 122 U/L (46-116); ASPARTATE AMINO TRANSFERASE 46 U/L (15-37); BILIRUBIN,TOTAL 0.7 MG/DL (0.2-1.0); CREATINE KINASE 81 U/L (26-308)
--- NOTE | 2018-09-07 20:58 | Emergency Room Report ---
History of Present Illness General Chief Complaint: Alcohol Intoxication Source: Patient (Odilia Whiting) Present Illness HPI 33-year-old male with history of alcohol abuse here for altered level of consciousness and strong alcohol patient does not respond to questions however is awake and alert. Patient has lost urinary continence. Drooling, and lethargic. Vital signs are within normal limits. Patient has previously been here recently for similar symptoms and alcohol intoxication. Patient unable to answer questions regarding medical history, drug use, tobacco smoke. Patient is in mild distress. (Odilia Whiting) Allergies: Coded Allergies: No Known Allergies (Unverified , 07/21/17) Patient History Past Medical History: see triage record Past Surgical History: unable to obtain Pertinent Family History: unable to obtain Social History: Reports: alcohol use - intoxicated Immunizations: other Reviewed Nursing Documentation: PMH: Agreed; PSxH: Agreed (Odilia Whiting) Nursing Documentation-PMH Past Medical History: No History, Except For Hx Cardiac Problems: No Hx Cancer: No Hx Gastrointestinal Problems: Yes Hx Neurological Problems: No (Odilia Whiting) Review of Systems All Other Systems: negative except mentioned in HPI (Odilia Whiting) Physical Exam Vital Signs Date Time Temp Pulse Resp B/P (MAP) Pulse Ox O2 Delivery O2 Flow Rate FiO2 09/07/18 19:09 98.1 106 18 121/76 (91) 93 Room Air Sp02 EP Interpretation: reviewed, normal General Appearance: mild distress, lethargic, other - alcohol odor, disheveled Head: normocephalic, atraumatic Eyes: bilateral eye abnormal pupil ENT: normal ENT inspection Neck: normal inspection, full range of motion, supple Respiratory: normal inspection, chest non-tender, no rhonchi, no wheezing Cardiovascular #1: normal inspection, regular rate, rhythm, no murmur, normal capillary refill Gastrointestinal: normal inspection, non tender, soft, no guarding Genitourinary: no CVA tenderness Musculoskeletal: normal inspection, back normal Neurologic: sensory intact, other - non responsive to command Psychiatric: other - alcohol intoxication Skin: no rash, normal color Lymphatic: normal inspection, no adenopathy (Odilia Whiting) Medical Decision Making PA Attestation All my diagnosis and treatment plans were reviewed ad discussed with my supervising physician Dr. Yap (Odilia Whiting) Diagnostic Impression: Primary Impression: Acute alcoholic intoxication Qualified Codes: F10.920 - Alcohol use, unspecified with intoxication, uncomplicated ER Course 33-year-old male with history of alcohol abuse here for altered level of consciousness and strong alcohol patient does not respond to questions however is awake and alert. Patient has lost urinary continence. Drooling, and lethargic. Vital signs are within normal limits. Patient has previously been here recently for similar symptoms and alcohol intoxication. Patient unable to answer questions regarding medical history, drug use, tobacco smoke. Patient is in mild distress. Ddx considered but are not limited to: generalized anxiety disorder, panic attack, depression with psycotic featurs, bipolar disorder, drug overdose , alcohol intoxication Vital signs: are WNL, pt. is afebrile H&PE are most consistent with: Alcohol intoxication ORDERS: Altered level of consciousness orders ED INTERVENTIONS: IV fluids, Zofran, Pepcid I signed the patient to Dr. Anderson as pt not sober and not responding to questions prior to end of my shift DISCHARGE: At this time pt. is stable for d/c to home. Will provide printed patient care instructions, and any necessary prescriptions. Care plan and follow up instructions have been discussed with the patient prior to discharge. etoh: [id number] (Odilia Whiting) ER Course Patient presents with acute alcohol intoxication. Alcohol level is very high. He is been sleeping all night. No complication. Now he is awake. Will discharge home. (Dharmesh Anderson MD) EKG Diagnostic Results Rate: tachycardiac Rhythm: NSR ST Segments: no acute changes (Odilia Whiting) Last Vital Signs Date Time Temp Pulse Resp B/P (MAP) Pulse Ox O2 Delivery O2 Flow Rate FiO2 09/07/18 19:10 106 18 Room Air 09/07/18 19:10 98.1 121/76 93 (Odilia Whiting) Status: improved (Dharemsh Anderson MD) Disposition: HOME, SELF-CARE Condition: Stable Patient Instructions: Alcohol Intoxication, [id number] Additional Instructions: Abstain from drinking to excess. Go to rehab. Follow up with your doctor in 7 days. Return if symptoms worsen. Odilia Whiting Sep 07, 2018 20:58 Dharmesh Anderson MD Sep 08, 2018 05:21
[2018-09-07 21:01] LABS: APPEARANCE,URINE CLEAR; BILIRUBIN, URINE NEGATIVE (NEGATIVE); COLOR,URINE PALE YELLOW; GLUCOSE, URINE (UA) NEGATIVE (NEGATIVE); KETONES,URINE NEGATIVE (NEGATIVE); LEUKOCYTE ESTERASE ,URINE NEGATIVE (NEGATIVE); NITRITE,URINE NEGATIVE (NEGATIVE); PH,URINE 6 (4.5-8.0); PROTEIN,URINE 1+ (NEGATIVE); UROBILINOGEN,URINE NORMAL MG/DL (0.0-1.0)
[2018-09-07 21:45] VITALS: BP 118/72
[2018-09-08 00:04] VITALS: BP 119/72
[2018-09-08 02:34] VITALS: BP 125/75
[2018-09-08 04:02] VITALS: BP 119/72
[2018-09-08 06:07] VITALS: BP 115/70
[2018-09-08 06:15] VITALS: BP 120/73
--- NOTE | 2018-09-08 11:21 | Diagnostic Imaging Report ---
Indication: Altered level of consciousness Technique: Contiguous 5 mm thick transaxial imaging of the head obtained in a Siemens Sensation [address] scanner. Soft tissue and bone windows generated. Automatic Exposure Control was utilized. Total Dose length Product (DLP): 1513.[address] Dose Index Volume (CTDIvol): 70.38 mGy Comparison: 05/12/2018 Findings: The size and configuration of the cortical sulci, basal cisterns, and ventricles are within normal limits for age. There is no mass effect, midline shift, or edema identified. There is no evidence of acute hemorrhage or abnormal intra-axial or extra-axial fluid collections. The bones and soft tissues are unremarkable. Impression: No mass effect, edema or acute bleed. [facility] has communicated the preliminary results to the Emergency Department. Their findings are largely concordant with this report. The CT scanner at [facility] is accredited by the [employer] and the scans are performed using dose optimization techniques as appropriate to a performed exam including Automatic Exposure control.
--- NOTE | 2018-09-09 16:07 | Cardiology Report ---
APPROVED REPORT EKG Measurement Heart [id number] [id number] Sinus tachycardia Otherwise normal ECG
== END 2018-09-08 06:15 | disposition home or self-care (01) ==
LOC: EMR 20:59
DX: F10.920 Alcohol use, unspecified with intoxication, uncomplicated (principal)
CPT/HCPCS: 36415; 70450; 71045; 80053; 80307; 81001; 82550; 84484; 85025; 93005; 96361; 96374; 96375; 99284; G0480; J2405; J7040; S0028; 80329